=== PATIENT | female | born 1945 | race Caucasian/White ===

== ENCOUNTER 2021-08-02 14:27 | Emergency (ER) | payer MEDICARE, BC ==
[2021-08-02 16:30] LABS: HEMOGLOBIN 14.1 gm/dl (12.3-15.3); RED BLOOD COUNT 4.48 M/UL (4.00-5.10); WHITE BLOOD COUNT 10.7 K/UL (4.5-11.0)
[2021-08-02 16:56] LABS: BUN/CREATININE RATIO 22 (0-10)
== END 2021-08-02 19:05 | disposition left against medical advice (07) ==
LOC: ER1 14:27
PROVIDERS: Physician Assistant
DX: R07.9 Chest pain, unspecified (principal); R51.9 Headache, unspecified; E11.9 Type 2 diabetes mellitus without complications; I10 Essential (primary) hypertension; Z79.82 Long term (current) use of aspirin; Z79.899 Other long term (current) drug therapy; Z20.822 Contact with and (suspected) exposure to COVID-19
CPT/HCPCS: 70450; 71045; 80048; 82550; 82553; 84484; 85025; 93005; 99283; U0002